=== PATIENT | male | born 1980 | race Caucasian/White ===

== ENCOUNTER 2020-12-19 13:00 | Outpatient (REF) | payer MEDICAID, SELFPAY ==
--- NOTE | ~2020-12-19 | XR_ITS ---
EXAMINATION: CERVICAL THORACIC AND LUMBAR SPINE CLINICAL INFORMATION: Pain. Right-sided sciatica. COMPARISON: None TECHNIQUE: 5 views of the cervical spine, 3 views of the thoracic spine and 5 views of the lumbar spine FINDINGS: Cervical spine: Bone alignment is normal. No fracture or dislocation is seen. Disc spaces are normal. Neural foramen are patent. Prevertebral soft tissues are normal. Thoracic spine: There is mild curvature of the proximal thoracic spine to the right with apex at T5-T6. Bone alignment is otherwise normal. No fracture or dislocation is seen. Disc spaces are normal. Paraspinal soft tissues are normal. Lumbar spine: Bone alignment is normal. No fracture or dislocation is seen. Disc spaces are normal. No pars defect is seen. There is bilateral lower lumbar spine facet arthritis at L5-S1. XR/XR lumbar spine 4V min IMPRESSION: Normal cervical spine. Mild curvature of the proximal thoracic spine to the right otherwise unremarkable thoracic spine. Lumbar spine: Lower lumbar spine facet arthritis.
--- NOTE | ~2020-12-19 | XR_ITS ---
EXAMINATION: CERVICAL THORACIC AND LUMBAR SPINE CLINICAL INFORMATION: Pain. Right-sided sciatica. COMPARISON: None TECHNIQUE: 5 views of the cervical spine, 3 views of the thoracic spine and 5 views of the lumbar spine FINDINGS: Cervical spine: Bone alignment is normal. No fracture or dislocation is seen. Disc spaces are normal. Neural foramen are patent. Prevertebral soft tissues are normal. Thoracic spine: There is mild curvature of the proximal thoracic spine to the right with apex at T5-T6. Bone alignment is otherwise normal. No fracture or dislocation is seen. Disc spaces are normal. Paraspinal soft tissues are normal. Lumbar spine: Bone alignment is normal. No fracture or dislocation is seen. Disc spaces are normal. No pars defect is seen. There is bilateral lower lumbar spine facet arthritis at L5-S1. XR/XR thoracic spine 3V IMPRESSION: Normal cervical spine. Mild curvature of the proximal thoracic spine to the right otherwise unremarkable thoracic spine. Lumbar spine: Lower lumbar spine facet arthritis.
--- NOTE | ~2020-12-19 | XR_ITS ---
EXAMINATION: CERVICAL THORACIC AND LUMBAR SPINE CLINICAL INFORMATION: Pain. Right-sided sciatica. COMPARISON: None TECHNIQUE: 5 views of the cervical spine, 3 views of the thoracic spine and 5 views of the lumbar spine FINDINGS: Cervical spine: Bone alignment is normal. No fracture or dislocation is seen. Disc spaces are normal. Neural foramen are patent. Prevertebral soft tissues are normal. Thoracic spine: There is mild curvature of the proximal thoracic spine to the right with apex at T5-T6. Bone alignment is otherwise normal. No fracture or dislocation is seen. Disc spaces are normal. Paraspinal soft tissues are normal. Lumbar spine: Bone alignment is normal. No fracture or dislocation is seen. Disc spaces are normal. No pars defect is seen. There is bilateral lower lumbar spine facet arthritis at L5-S1. XR/XR cervical spine 4V IMPRESSION: Normal cervical spine. Mild curvature of the proximal thoracic spine to the right otherwise unremarkable thoracic spine. Lumbar spine: Lower lumbar spine facet arthritis.
== END 2020-12-19 13:01 | disposition home or self-care (01) ==
LOC: HO.XRAY 13:00
PROVIDERS: PCP Nurse Practitioner Family; Visit Provider Nurse Practitioner Family
DX: M54.31 Sciatica, right side (principal)
CPT/HCPCS: 72050; 72072; 72110

== ENCOUNTER 2021-03-27 05:05 | Emergency (ER) | payer MEDICAID, SELFPAY ==
--- NOTE | ~2021-03-27 | XR_ITS ---
EXAMINATION: XR CHEST CLINICAL INFORMATION: Chest pain/SOB COMPARISON: None TECHNIQUE: 2 views of the chest were obtained. FINDINGS: No significant abnormality is noted involving the heart, lungs, mediastinum, bony thorax or soft tissues. XR/XR chest 2V IMPRESSION: Unremarkable chest examination.
[2021-03-27 05:10] VITALS: BP 138/70; PULSE 88; RESP 14; TEMP 36.2; O2SAT 100; BMI 19.4
--- NOTE | 2021-03-27 08:20 | ECG_ITS ---
Test Reason : SHORTNESS OF BREATH Blood Pressure : / mmHG Vent. Rate : 055 BPM Atrial Rate : 055 BPM P-R Int : 180 ms QRS Dur : 092 ms QT Int : 434 ms P-R-T Axes : 079 078 059 degrees QTc Int : 415 ms Sinus bradycardia Moderate voltage criteria for LVH, may be normal variant Borderline ECG When compared with ECG of 08-JUN-2020 20:24, SD interval has decreased Referred By: Pema Nioclas Electronically Signed By:Trent Hay
--- NOTE | 2021-03-27 08:43 | ED_ITS ---
HPI - General Adult General Chief complaint: General Medical Stated complaint: anxiety Time Seen by Provider: 03/27/21 08:08 Source: patient Mode of arrival: ambulatory Limitations: no limitations History of Present Illness HPI narrative: 40 yo male previously healthy woke up at 3am with SOB, bilateral hand/feet tingling with cramps in the LE. No associated CP, dizziness, nausea, diaphoresis. Lasted 5 minutes and self-resolved. No symptoms now. No recent travel, no sick contact. Related Data Allergies Allergy/AdvReac Type Severity Reaction Status Date / Time diphenhydramine Allergy Mild HIVES Verified 03/27/21 05:14 [From BENADRYL] Review of Systems Review of Systems: Yes all other systems are reviewed and are negative Constitutional: Constitutional: Reports no additional constitutional complaints, Denies body ache(s), Denies chills, Denies fever(s), Denies h eadache(s) and Denies weakness Eyes: Eyes: Reports no additional eye complaints and Denies change in vision ENT: Reports system reviewed and no additional complaints, except as documented, Denies dizziness, Denies headache(s), Denies nasal congestion, Denies nasal discharge and Denies neck pain Cardiovascular: Cardiovascular: Reports no additional cardiovascular complaints, Denies chest pain, Denies leg edema and Reports dyspnea Respiratory: Respiratory: Reports no additional respiratory complaints, Denies cough and Reports dyspnea Gastrointestinal: Gastrointestinal: Reports no additional gastrointestinal complaints, Denies abdominal pain, Denies diarrhea, Denies nausea and Denies vomiting Genitourinary: Genitourinary: Denies urinary incontinence Musculoskeletal: Musculoskeletal: Reports no additional musculoskeletal complaints, Denies back pain, Denies arthralgias, Denies joint swelling, Denies neck pain, Reports numbness and Denies tingling Integumentary/Breasts: Skin/Breast: Reports system reviewed and no additional complaints, except as docu and Denies rash Neurologic: Reports system reviewed and no additional complaints, except as documented, Denies Abnormal speech present, Denies dizziness, Denies headache(s), Reports numbness, Denies tingling and Denies weakness PMFSH Past Medical History Attestation statement: The following information was validated with the patient. Source: old records reviewed and nursing notes reviewed Social History Social History Advance Directives: No Physical Exam Vital Signs: Vital Signs: Last Vital Signs Temp 97.2 F 03/27/21 05:10 Pulse 60 03/27/21 09:22 Resp 15 03/27/21 09:22 BP 121/73 03/27/21 09:22 Pulse Ox 100 03/27/21 09:22 Body Mass Index 19.4 Const: General: cooperative, healthy appearing, comfortable and no acute distress Orientation/consciousness: patient oriented x3 Limitations: no limitations HENMT: Head: Yes normal to inspection Ears: hearing grossly normal bilaterally General nose exam: Normal external nose present Face and sinus: Yes normal facial exam Mouth: Normal oral and palatal mucosa present Throat: Yes posterior oropharynx normal Eyes: General: appearance normal, both eyes and all related structures Pupils: Equal, round and reactive pupils present Neck: Neck: Yes normal visual inspection Chest: Chest palpation & inspection: normal inspection of the chest Resp: Effort & Inspection: normal respiratory effort Auscultation: clear to auscultation bilaterally Cardio: Rate: regular rate Rhythm: regular rhythm Peripheral pulses: Peripheral pulses 2+ throughout GI: Inspection: Yes normal to inspection Palpation (GI): Soft to palpation and nontender Auscultation: normal bowel sounds Back/Spine/Pelvis: Thoracic/Lumbar Spine: thoracic and lumbar spine normal to inspection Skin: General skin exam: no rashes or lesions noted Neuro: General: patient oriented x3, no focal motor deficits and normal sensation to monofilament Cranial nerves: Yes CN's II-XII intact bilaterally, Yes Equal, round and reactive pupils present, Yes Bilaterally intact EOM present, Yes Nystagmus not present, Yes Normal facial strength present and Yes Midline tongue present Cognition (Neuro): normal cognition Speech: No Abnormal speech present Gait exam (Neuro): Normal gait present Motor exam (neuro): 5/5 motor strength present throughout Sensory Exam: Normal double simultaneous stimulation for sensation Extrem: General: Yes normal to inspection, Yes no pedal edema and Yes no calf tenderness Course Course Course Narrative: Episode of SOB, bilateral hand/feet tingling at 3am that self- resolved after 5 minutes. Normal exam here. NO symptoms here. WIll check EKG, CXR, labs. 0950-Labs, EKG and CXR negative. No symptoms during ED stay. ?panic attack. Patient denies current anxiety, depression, SI. Medical Decision Making Medical Records Medical records reviewed: Yes I reviewed the patient's medical records. Lab Data Lab results reviewed: Yes I reviewed the patient's lab results. Result diagrams: 03/27/21 08:42 03/27/21 08:42 Labs: Lab Results 03/27/21 03/27/21 03/27/21 Range/Units 08:42 08:42 08:42 WBC 8.1 (4.8-10.8) X10*3/uL RBC 4.61 (4.60-5.80) X10*6/uL Hgb 13.6 L (14.0-18.0) g/dl Hct 41.0 L (42-52) % MCV 88.9 (80-98) fL MCH 29.5 (27.0-33.0) pg MCHC 33.2 (31.0-36.0) g/dl RDW 12.8 (11.0-16.0) % Plt Count 290 (160-400) X10*3/uL MPV 9.7 (9.4-12.4) fL Immature Gran % (Auto) 0.1 (0.0-0.4) % Neut % (Auto) 66.7 (45-73) % Lymph % (Auto) 19.6 L (20-40) % [place] % (Auto) 9.9 (2-11) % Eos % (Auto) 3.0 (0-4) % Baso % (Auto) 0.7 (0-2) % Lymph # (Auto) 1.6 (1.2-4.9) X10*3/uL [place] # (Auto) 0.8 (0.1-1.2) X10*3/uL Eos # (Auto) 0.2 (0.0-0.4) X10*3/uL Baso # (Auto) 0.1 (0.0-0.2) X10*3/uL Abs Immat Gran (auto) 0.01 (0.00-0.03) X10*3/uL Absolute Neuts (auto) 5.4 (2.0-8.3) X10*3/uL Absolute Nucleated RBC 0.000 (0.0-0.012) X10*3/uL Nucleated RBC % (auto) 0.0 (0.0-0.2) /100WBC Sodium 139 (135-145) mmol/L Potassium 5.0 (3.3-5.1) mmol/L Chloride 103 (96-108) mmol/L Carbon Dioxide 27 (22-29) mmol/L Anion Gap 14 (12-20) BUN 22 H (9-16) mg/dL Creatinine 0.95 (0.5-1.4) mg/dL Estim Creat Clear Calc 91.7 Estimated GFR > 60 Random Glucose 105 (60-115) mg/dL Calcium 9.7 (8.4-10.2) mg/dL Magnesium 2.2 (1.6-2.6) mg/dL Total Bilirubin 0.6 (0.0-1.0) mg/dL Direct Bilirubin 0.2 (0.0-0.5) mg/dL AST 22 (5-37) U/L ALT 12 (0-40) U/L Alkaline Phosphatase 64 (39-117) U/L Troponin I High Sens < 3.5 (<3.5-35.0) ng/L Total Protein 7.1 (6.5-8.0) g/dL Albumin 4.6 (3.5-5.0) g/dL Imaging Data Chest x-ray: Attestation: I personally reviewed and interpreted this imaging study as follows: Radiologist's impression: EXAMINATION: XR CHEST CLINICAL INFORMATION: Chest pain/SOB COMPARISON: None TECHNIQUE: 2 views of the chest were obtained. FINDINGS: No significant abnormality is noted involving the heart, lungs, mediastinum, bony thorax or soft tissues. XR/XR chest 2V IMPRESSION: Unremarkable chest examination. ECG Data Attestation: I personally reviewed and interpreted this ECG as follows: Interpretation: SB with rate 55, normal pr, normal qrs, normal qtc Discharge Plan Discharge Clinical Impression: Panic attack Patient Disposition: Home, Self-Care Instructions: Panic Attack (ED) Additional Instructions: Your blood work, EKG and chest-xray all looked normal Referrals: Physician,Unknown [Primary Care Provider] - 2 days Interventions: ED Discharge Assessment Last Done: 03/27/21 10:00 Discharge Date/Time: 03/27/21 10:01
[2021-03-27 08:49] LABS: MANUAL DIFF FLAG NO
--- NOTE | 2021-03-27 08:55 | PC.NURSE ---
nad, skin wpd, no complints, aware of care plan
[2021-03-27 08:59] LABS: Basophils Absolute Auto 0.1 X10*3/uL (0.0-0.2); Basophils Percent Auto 0.7 % (0-2); Eosinophils Absolute Auto 0.2 X10*3/uL (0.0-0.4); Hemoglobin 13.6 g/dl (14.0-18.0); Imm Gran Abs Auto 0.01 X10*3/uL (0.00-0.03); Imm Gran Pct Auto 0.1 % (0.0-0.4); Lymphocytes Absolute Auto 1.6 X10*3/uL (1.2-4.9); Lymphocytes Percent Auto 19.6 % (20-40); Mean Corpuscular HGB Conc 33.2 g/dl (31.0-36.0); Mean Corpuscular Hemoglobin 29.5 pg (27.0-33.0); Mean Corpuscular Volume 88.9 fL (80-98); Mean Platelet Volume 9.7 fL (9.4-12.4); Monocytes Absolute Auto 0.8 X10*3/uL (0.1-1.2); Monocytes Percent Auto 9.9 % (2-11); Neutrophils Absolute Auto 5.4 X10*3/uL (2.0-8.3); Neutrophils Percent Auto 66.7 % (45-73); Platelet Count 290 X10*3/uL (160-400); Red Blood Count 4.61 X10*6/uL (4.60-5.80); Red Cell Distribution Width 12.8 % (11.0-16.0); White Blood Count 8.1 X10*3/uL (4.8-10.8)
[2021-03-27 09:20] LABS: Alanine Aminotransferase 12 U/L (0-40); Albumin Level 4.6 g/dL (3.5-5.0); Alkaline Phosphatase 64 U/L (39-117); Anion Gap 14 (12-20); Aspartate Amino Transferase 22 U/L (5-37); Bilirubin Direct 0.2 mg/dL (0.0-0.5); Bilirubin Total 0.6 mg/dL (0.0-1.0); Blood Urea Nitrogen 22 mg/dL (9-16); Calcium 9.7 mg/dL (8.4-10.2); Carbon Dioxide 27 mmol/L (22-29); Chloride 103 mmol/L (96-108); Creatinine Clr Calc Pharmacy 91.7; Estimated Glomerular Filt Rate > 60; Glucose Random 105 mg/dL (60-115); Magnesium 2.2 mg/dL (1.6-2.6); Sodium 139 mmol/L (135-145); Total Protein 7.1 g/dL (6.5-8.0)
[2021-03-27 09:22] VITALS: BP 121/73; PULSE 60; RESP 15; O2SAT 100
[2021-03-27 09:22] LABS: Troponin-I High Sensitivity < 3.5 ng/L (<3.5-35.0)
== END 2021-03-27 10:01 | disposition home or self-care (01) ==
PROVIDERS: Nurse Practitioner Family; Emergency Provider Emergency Medicine Emergency Medical Services
DX: F41.0 Panic disorder [episodic paroxysmal anxiety] (principal)
CPT/HCPCS: 36415; 71046; 80048; 80076; 83735; 84484; 85025; 93005; 99283; 99284